=== PATIENT | female | born 1990 | race American Indian/Alaskan Native ===

== ENCOUNTER 2016-08-27 22:33 | Emergency (ER) | payer MEDICAID, OTHER ==
[2016-08-27 22:42] VITALS: BP 140/79; PULSE 85; RESP 18; TEMP 98.7; O2SAT 98
--- NOTE | 2016-08-27 23:08 | C.PDOC ---
History Of Present Illness Patient is a 26 year old female who presents to the ER with a complaint of a bump to her rectal area. Patient reports she was pushing while having a bowel movement and got a bump yesterday. Patient has a Hx of constipation. Denies bleeding with BM, melena or recent injury. (-) abdominal pain (-) vaginal discharge (-) vaginal bleeding Time Seen by Provider: 08/27/16 22:43 Chief Complaint (Nursing): GI Problem History Per: Patient History/Exam Limitations: no limitations Onset/Duration Of Symptoms: Hrs Current Symptoms Are (Timing): Still Present Location Of Pain/Discomfort: Other (No pain) Radiation Of Pain To:: None Associated Symptoms: denies: Other (rectal bleed) Alleviating Factors: None Recent travel outside of the [place]: No Abnormal Vaginal Bleeding: No Past Medical History Reviewed: Historical Data, Nursing Documentation, Vital Signs Vital Signs: Last Vital Signs Temp 98.7 F 08/27/16 22:39 Pulse 85 08/27/16 22:39 Resp 18 08/27/16 22:39 BP 140/79 08/27/16 22:39 Pulse Ox 98 08/28/16 01:30 - Medical History PMH: No Chronic Diseases Surgical History: No Surg Hx Family History: States: Unknown Family Hx - Social History Hx Tobacco Use: Yes (daily ciagarette smoker) Hx Alcohol Use: Yes (occasionally) Hx Substance Use: No - Immunization History Hx Tetanus Toxoid Vaccination: No Hx Influenza Vaccination: No Hx Pneumococcal Vaccination: No Review Of Systems Gastrointestinal: Positive for: Other (Rectal bump, no bleeding) Physical Exam - Physical Exam Appears: Well, Non-toxic, No Acute Distress Skin: Normal Color, Warm, Dry Head: Atraumatic, Normacephalic Eye(s): bilateral: Normal Inspection, EOMI Nose: Normal Oral Mucosa: Moist Chest: Symmetrical, No Tenderness Respiratory: No Accessory Muscle Use, Other (Speaking in complete sentences) Gastrointestinal/Abdominal: Normal Exam, Soft, No Tenderness Rectal: Hemorrhoids (0.5 cm non thrombosed hemorrhoid) Back: No CVA Tenderness, No Vertebral Tenderness Neurological/Psych: Oriented x3, Normal Speech, Other (no focal deficits) ED Course And Treatment O2 Sat by Pulse Oximetry: 98 (room air) Pulse Ox Interpretation: Normal Progress Note: Discussed diet changes and symptomatic treatments with patient, will discharge home and advised to follow up with PMD. Disposition - Disposition Referrals: Josie Pham MD [Primary Care Provider] - Disposition: HOME/ ROUTINE Disposition Time: 23:03 Condition: STABLE Additional Instructions: Take frequent warm sitz baths. Do not strain. Increase your fluid and fiber intake. Follow up with your doctor in 1-2 days. Prescriptions: Docusate Sodium [Colace] 100 mg PO BID #20 capsule Hydrocortisone [Anusol-HC] 25 mg RC DAILY #7 sup Instructions: Hemorrhoids (ED) - Clinical Impression Clinical Impression: Hemorrhoids - Scribe Statement The provider has reviewed the documentation as recorded by the Scribdelilah Alexander All medical record entries made by the Harjitibdelilah were at my direction and personally dictated by me. I have reviewed the chart and agree that the record accurately reflects my personal performance of the history, physical exam, medical decision making, and the department course for this patient. I have also personally directed, reviewed, and agree with the discharge instructions and disposition.
== END 2016-08-27 23:10 | disposition home or self-care (01) ==
LOC: SUPCPDRO 22:33 → C.ER 22:33
DX: K64.9 Unspecified hemorrhoids (principal)

== ENCOUNTER 2017-01-05 16:22 | Emergency (ER) | payer MEDICAID ==
[2017-01-05 16:48] VITALS: BMI 29.2
[2017-01-05 16:50] VITALS: RESP 18; TEMP 98.4
--- NOTE | 2017-01-05 17:32 | C.PDOC ---
History Of Present Illness 26 y/o female presents to ED with new onset itch and redness to left foot since this morning. Questionable insect bite as per patient initially itchy now with increased redness and local paresthesia. Patient denies trauma or any other complaints at this time. NEW OSNET ITCH, REDNESS L FOOT SINCE THIS MORNING. ?INSECT BITE. PS INITIALLY ITCHY NOW W INCR REDNESS. +LOCAL PARESTHESIA. DENIES TRAUMA EXAM NAD SKIN +HIVES DISTAL MEDIAL L FOOT OVER L MCP. INTACT NO CELLULITIS EXT NO DEFORM, FB. Time Seen by Provider: 01/05/17 17:28 Chief Complaint (Nursing): Bite History Per: Patient History/Exam Limitations: no limitations Onset/Duration Of Symptoms: Hrs Current Symptoms Are (Timing): Still Present Location Of Injury: Left: Foot Quality Of Symptoms: Itching Past Medical History Reviewed: Historical Data, Nursing Documentation, Vital Signs Vital Signs: Last Vital Signs Temp 98.4 F 01/05/17 16:48 Pulse 78 01/05/17 17:53 Resp 18 01/05/17 17:53 BP 120/75 01/05/17 17:53 Pulse Ox 98 01/05/17 17:53 - Medical History PMH: No Chronic Diseases Surgical History: No Surg Hx Family History: States: No Known Family Hx - Social History Hx Tobacco Use: Yes (daily ciagarette smoker) Hx Alcohol Use: Yes (occasionally) Hx Substance Use: No - Immunization History Hx Tetanus Toxoid Vaccination: No Hx Influenza Vaccination: No Hx Pneumococcal Vaccination: No Review Of Systems Except As Marked, All Systems Reviewed And Found Negative. Constitutional: Negative for: Fever, Chills Respiratory: Negative for: Shortness of Breath Gastrointestinal: Negative for: Nausea, Vomiting Skin: Positive for: Rash Neurological: Positive for: Numbness. Negative for: Weakness Physical Exam - Physical Exam Appears: Non-toxic, No Acute Distress Skin: Warm, Dry, Rash (+hives to distal medial left foot over left MCP. intact no cellulitis) Head: Normacephalic Eye(s): bilateral: Normal Inspection Nose: Normal Oral Mucosa: Moist Throat: Normal, No Erythema Neck: Normal ROM, Supple Extremity: Capillary Refill (<2 seconds), No Deformity, Other (No foreign body) Extremity: Bilateral: Atraumatic Neurological/Psych: Oriented x3, Normal Motor, Normal Sensation ED Course And Treatment O2 Sat by Pulse Oximetry: 100 (RA) Pulse Ox Interpretation: Normal Disposition Counseled Patient/Family Regarding: Diagnosis, Need For Followup, Rx Given - Disposition Referrals: YOUR,PMD [Other] Disposition: HOME/ ROUTINE Disposition Time: 17:34 Condition: IMPROVED Prescriptions: DiphenhydrAMINE [Benadryl] 50 mg PO TID PRN #30 cap PRN Reason: Itching / Pruritus predniSONE [Prednisone] 60 mg PO DAILY #12 tab Instructions: Urticaria (ED) Forms: gauzz (Marshallese) - Clinical Impression Clinical Impression: Hives - Scribe Statement The provider has reviewed the documentation as recorded by the Scribdelilah Horn All medical record entries made by the Harjitibdelilah were at my direction and personally dictated by me. I have reviewed the chart and agree that the record accurately reflects my personal performance of the history, physical exam, medical decision making, and the department course for this patient. I have also personally directed, reviewed, and agree with the discharge instructions and disposition.
[2017-01-05 17:54] VITALS: BP 120/75; PULSE 78
[2017-01-05 18:50] VITALS: O2SAT 100
== END 2017-01-05 17:55 | disposition home or self-care (01) ==
LOC: EDBD → C.ER 16:22 → EDBD 16:22 → C.ER 17:55
DX: L50.9 Urticaria, unspecified (principal)

== ENCOUNTER 2017-09-15 07:35 | Emergency (ER) | payer MEDICAID, OTHER ==
[2017-09-15 08:22] VITALS: BP 147/83; PULSE 87; RESP 16; TEMP 97.6; O2SAT 100; BMI 30.9
--- NOTE | 2017-09-15 09:08 | C.PDOC ---
Time Seen by Provider: 09/15/17 08:03 Chief Complaint (Nursing): ENT Problem Past Medical History Vital Signs: Last Vital Signs Temp 97.6 F 09/15/17 07:41 Pulse 87 09/15/17 07:41 Resp 16 09/15/17 07:41 BP 147/83 09/15/17 07:41 Pulse Ox 100 09/15/17 07:41 Family History: States: Unknown Family Hx - Social History Hx Tobacco Use: Yes (daily ciagarette smoker) Hx Alcohol Use: Yes (occasionally) Hx Substance Use: No - Immunization History Hx Tetanus Toxoid Vaccination: No Hx Influenza Vaccination: No Hx Pneumococcal Vaccination: No ED Course And Treatment O2 Sat by Pulse Oximetry: 100 Disposition - Disposition Referrals: Maximilian Sanchez MD [Staff Provider] - Disposition: HOME/ ROUTINE Disposition Time: 09:05 Condition: GOOD Additional Instructions: Follow up with the medical doctor within 1-2 days. Return if worsened,. Prescriptions: Amoxicillin [Amoxil 500 mg Cap] 500 mg PO TID #29 cap Ibuprofen [Motrin] 600 mg PO TID #21 tab Instructions: Sore Throat, Adult (DC) - Clinical Impression Clinical Impression: Pharyngitis
== END 2017-09-15 09:24 | disposition home or self-care (01) ==
LOC: C.ER 07:35
DX: J02.9 Acute pharyngitis, unspecified (principal)